=== PATIENT | female | born 1975 | race African-American/Black ===

== ENCOUNTER 2017-04-23 12:15 | Emergency (ER) | payer OTHER ==
[~2017-04-23] VITALS: Ht 152.4 cm; Wt 72.6 kg
[~2017-04-23 12:15] MED LIST: ALBUTEROL2.5 MG/3 M HHN; AUGMENTIN TAB875 MG PO; IBUPROFEN800 MG ORAL; METRONIDAZOLE500 MG ORAL; NORCO 5-325 TA1 EACH ORAL; PRENATAL VITAMINS; PROAIR HFA8.5 GM INH; TYLENOL500 MG PO
[2017-04-23] MEDS ORDERED: FLONASE ALLERG9.9 ML NS (12:41)
[2017-04-23] MEDS ORDERED: BROMFED DM COU118 ML PO (12:41)
[2017-04-23] MEDS ORDERED: ZYRTEC10 MG ORAL (12:41)
--- NOTE | 2017-04-23 12:41 | Emergency Room Report ---
History of Present Illness General Chief Complaint: Sore Throat Source: Patient Present Illness HPI 41 y/o female c/o URI sxs x 4 days. Assoc sxs include nasal congestion, rhinorrhea, sore throat, post nasal drip, bodyaches, chills, and cough due to tickle in the throat. States they have not taken any medication and there are no modifying factors. Denies any current n/v/f/c/d, abd pain, back pain, neck pain, photophobia, phonophobia, CP, SOB or headache. Allergies: Coded Allergies: No Known Allergies (Unverified , 05/05/12) Patient History Past Medical History: see triage record Past Surgical History: none Pertinent Family History: none Last Menstrual Period: 04/19/17 Now: No : 3 Para: 3 Immunizations: UTD Reviewed Nursing Documentation: PMH: Agreed, PSxH: Agreed Nursing Documentation-PMH Past Medical History: No History, Except For Hx Asthma: Yes - asthma Review of Systems All Other Systems: negative except mentioned in HPI Physical Exam Vital Signs Date Time Temp Pulse Resp B/P (MAP) Pulse Ox O2 Delivery O2 Flow Rate FiO2 04/23/17 12:20 98.1 88 20 118/71 99 Room Air Sp02 EP Interpretation: reviewed, normal General Appearance: no apparent distress, alert, GCS 15, non-toxic Head: normocephalic, atraumatic Eyes: bilateral eye normal inspection, bilateral eye PERRL ENT: hearing grossly normal, normal pharynx, no angioedema, normal voice, TMs + canals normal, uvula midline, nasal congestion Neck: full range of motion, no meningismus, supple/symm/no masses Respiratory: chest non-tender, lungs clear, normal breath sounds, speaking full sentences Cardiovascular #1: regular rate, rhythm, no edema Musculoskeletal: gait/station normal Neurologic: alert, oriented x3, responsive, motor strength/tone normal, sensory intact, speech normal Psychiatric: judgement/insight normal, memory normal, mood/affect normal, no suicidal/homicidal ideation Skin: normal color, no rash, warm/dry, well hydrated Lymphatic: no adenopathy Medical Decision Making PA Attestation Dr. Perez my supervising physician with whom patient management has been discussed with. Diagnostic Impression: Primary Impression: URI with cough and congestion ER Course Pt. presents to the ED c/o of cough and congestion Ddx considered but are not limited to bronchitis, pneumonia, viral upper respiratory tract infection Vital signs: are WNL, pt. is afebrile H&PE are most consistent with viral upper respiratory tract infection ORDERS: none required at this time, the diagnosis is clinical ED INTERVENTIONS: Prednisone 20mg. DISCHARGE: At this time pt. is stable for d/c to home. Will provide printed patient care instructions, and any necessary prescriptions. Care plan and follow up instructions have been discussed with the patient prior to discharge. Last Vital Signs Date Time Temp Pulse Resp B/P (MAP) Pulse Ox O2 Delivery O2 Flow Rate FiO2 04/23/17 12:20 98.1 88 20 118/71 99 Room Air Disposition: HOME, SELF-CARE Condition: Stable Scripts D-Methorphan Hb/P-Epd Hcl/Bpm (BROMFED DM COUGH SYRUP) 118 Ml Syrup 5 ML PO QHS for 7 Days, #120 ML Prov: CHRISTAMEEM P.A. 04/23/17 Cetirizine Hcl* (ZYRTEC*) 10 Mg Tablet 10 MG ORAL DAILY, #14 TAB 0 Refills Prov: SABRY,TAMEEM P.A. 04/23/17 Fluticasone Propionate (Flonase Allergy Relief) 9.9 Ml [place].susp 2 SPRAYS NS DAILY for 7 Days, #10 ML Prov: SABRY,TAMEEM P.A. 04/23/17 Patient Instructions: Sore Throat YOSELIN PEREZ P.A. Apr 23, 2017 12:41
[2017-04-23 12:55] VITALS: BP 128/76
== END 2017-04-23 13:00 | disposition home or self-care (01) ==
LOC: EMR 13:00
DX: J06.9 Acute upper respiratory infection, unspecified (principal); J45.909 Unspecified asthma, uncomplicated
CPT/HCPCS: 99284

== ENCOUNTER → 2017-07-04 | Emergency (ER) | payer MEDICAID, OTHER ==
[~2017-07-04] VITALS: Ht 152.4 cm; Wt 67.1 kg
[~2017-07-04] MED LIST changes: +BROMFED DM COU118 ML PO; +FLONASE ALLERG9.9 ML NS; +ZYRTEC10 MG ORAL
[2017-07-04 19:04] VITALS: BP 128/84
--- NOTE | 2017-07-05 20:18 | Emergency Room Report ---
History of Present Illness General Chief Complaint: Abdominal Pain Source: Patient, Medical Record Present Illness HPI Patient left without being seen. Allergies: Coded Allergies: No Known Allergies (Unverified , 05/05/12) Patient History Last Menstrual Period: 06/22/17 Nursing Documentation-[facility] Past Medical History: No History, Except For Hx Asthma: Yes - asthma Physical Exam Vital Signs Date Time Temp Pulse Resp B/P (MAP) Pulse Ox O2 Delivery O2 Flow Rate FiO2 07/04/17 19:04 97.9 91 18 128/84 97 Room Air Medical Decision Making PA Attestation Dr. Perez is my supervising Physician whom patient management has been discussed with. Diagnostic Impression: Primary Impression: Patient left without being seen ER Course Patient left without being seen. Last Vital Signs Date Time Temp Pulse Resp B/P (MAP) Pulse Ox O2 Delivery O2 Flow Rate FiO2 07/04/17 19:04 97.9 91 18 128/84 97 Room Air Disposition: ELOPED Referrals: [facility],REFERRING (PCP) Additional Instructions: Patient left without being seen. Delvis Post Jul 05, 2017 20:18
== END | disposition left against medical advice (07) ==
LOC: EMR 19:24
DX: R10.9 Unspecified abdominal pain (principal); Z53.21 Procedure and treatment not carried out due to patient leaving prior to being seen by health care provider
CPT/HCPCS: 99281

== ENCOUNTER 2017-12-06 06:59 | Emergency (ER) | payer MEDICAID ==
[~2017-12-06] VITALS: Ht 152.4 cm; Wt 63.5 kg
[2017-12-06 07:16] VITALS: BP 120/77
[2017-12-06] MEDS ORDERED: Morgan Lens TOPIC ONE (07:30)
[2017-12-06] MEDS ORDERED: Sodium Chloride 500ML 500 ML IV ONE (07:30)
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
[2017-12-06] MEDS ORDERED: Tetanus/Diptheria/Pertussis Vaccine 0.5ml Syr IM ONE (08:15)
[2017-12-06] MEDS ORDERED: OCUFLOX5 ML BOTH EYES (08:31)
[2017-12-06 08:48] VITALS: BP 120/77
== END 2017-12-06 08:45 | disposition home or self-care (01) ==
LOC: EMR 07:25
DX: T65.891A Toxic effect of other specified substances, accidental (unintentional), initial encounter (principal); H57.13 Ocular pain, bilateral; Y92.9 Unspecified place or not applicable; Z23 Encounter for immunization; J45.909 Unspecified asthma, uncomplicated
CPT/HCPCS: 90471; 90715; 99283; J7040

== ENCOUNTER 2018-05-08 11:35 | Emergency (ER) | payer MEDICAID, OTHER ==
[~2018-05-08] VITALS: Ht 152.4 cm; Wt 63.5 kg
[~2018-05-08 11:35] MED LIST changes: +OCUFLOX5 ML BOTH EYES
[2018-05-08] MEDS ORDERED: Ketorolac 30mg Inj IM ONE (12:30)
[2018-05-08 12:47] LABS: APPEARANCE,URINE CLEAR; BILIRUBIN, URINE NEGATIVE (NEGATIVE); COLOR,URINE PALE YELLOW; GLUCOSE, URINE (UA) NEGATIVE (NEGATIVE); KETONES,URINE NEGATIVE (NEGATIVE); LEUKOCYTE ESTERASE ,URINE NEGATIVE (NEGATIVE); NITRITE,URINE NEGATIVE (NEGATIVE); PH,URINE 8 (4.5-8.0); PROTEIN,URINE NEGATIVE (NEGATIVE); UROBILINOGEN,URINE NORMAL MG/DL (0.0-1.0)
--- NOTE | 2018-05-08 12:56 | Emergency Room Report ---
History of Present Illness General Chief Complaint: Gastrointestinal Bleed Source: Patient, Medical Record Present Illness HPI 42-year-old female patient presents the ER complaining of headache and vomiting blood. Patient reports that the headache is been present for 2 days. States the headache is on the left side of her head. Denies fever or neck pain. Denies vision changes, photophobia, phonophobia. Patient reports that she became nauseous and began vomiting while at court earlier today. Patient reports that first she vomited 4 times, the fourth episode she noticed some blood in the vomit. Denies coffee ground emesis. Denies eating food prior to vomiting. States that she has been able to drink fluids since that time without vomiting. Reports history of migraines in the past that normally occurs with vomiting, states that she normally takes Excedrin for relief of symptoms. Denies history of drinking or drug use. Denies fever, chest pain, shortness of breath, abdominal pain, diarrhea. Denies contacts with similar symptoms. Denies injury or trauma. Allergies: Coded Allergies: No Known Allergies (Unverified , 05/05/12) Patient History Past Medical History: see triage record Last Menstrual Period: 04/26/18 Reviewed Nursing Documentation: PMH: Agreed; PSxH: Agreed Nursing Documentation-PMH Past Medical History: No History, Except For Hx Asthma: Yes Review of Systems All Other Systems: negative except mentioned in HPI Physical Exam Vital Signs Date Time Temp Pulse Resp B/P (MAP) Pulse Ox O2 Delivery O2 Flow Rate FiO2 05/08/18 11:43 97.9 85 18 128/83 98 Room Air Sp02 EP Interpretation: reviewed, normal General Appearance: well appearing, no apparent distress, alert, GCS 15, non- toxic Head: normocephalic, atraumatic Eyes: bilateral eye normal inspection, bilateral eye PERRL ENT: hearing grossly normal, normal pharynx, no angioedema, normal voice, uvula midline, moist mucus membranes Neck: full range of motion, no meningismus, no bony tend Respiratory: lungs clear, normal breath sounds, no rhonchi, no respiratory distress, no accessory muscle use, no wheezing, speaking full sentences Cardiovascular #1: regular rate, rhythm, no edema Gastrointestinal: non tender, soft, no mass, non-distended, no guarding, no rebound Genitourinary: no CVA tenderness Musculoskeletal: back normal, digits/nails normal, gait/station normal, normal range of motion, non-tender Neurologic: alert, oriented x3, responsive, tearoom host/hostess III-XII nml as tested, motor strength/tone normal, sensory intact, cerebellar normal, normal gait, speech normal Psychiatric: mood/affect normal Skin: no rash Medical Decision Making PA Attestation Dr. Esposito is my supervising Physician whom patient management has been discussed with. Diagnostic Impression: Primary Impression: Migraine Additional Impression: Kaylan-Zavala tear ER Course Pt presents to ED c/o headache and vomiting. DDX considered but are not limited to migraine, cluster VALDEZ, tension VALDEZ, meningitis, ICH, meningitis, sinusitis, UTI, esophageal varices, Kaylan-Zavala tear, Denies neck pain, no meningeal signs of irritation, afebrile, low suspicion for meningitis. VITAL SIGNS are WNL, patient is afebrile ER COURSE Provide patient with Reglan, Benadryl, Toradol, Zofran while in the ER. UA shows no signs of infection, does not require treatment for UTI. CT head negative for acute disease. No signs of anemia, no circumoral pallor, no blood noted in oropharynx, cap refill less than 2 seconds, does not require labs at this time, single episode of vomiting with blood likely due to likely Kaylan-Zavala tear secondary to vomiting. Patient able tolerate p.o. fluids at this time. Patient reports pain improved. Patient is AOx3, neurologically intact, nontoxic appearing, and ambulatory. Follow-up with neurology. Follow-up with GI specialist. ER precautions given. DISCHARGE: At this time pt is stable for d/c to home. Patient is resting comfortably, in no acute distress, nontoxic appearing, talking and smiling. Will provide with patient care instructions and any necessary prescriptions. Patient to take medication as instructed. Care plan and follow-up instructions provided. Patient questions asked and answered. Patient instructed to follow-up with primary care provider in the next 3 days and discuss further referral with PCP to neurologist. ER precautions given. Patient instructed to return to ER immediately for any new or worsening of symptoms including but not limited to fever, neck stiffness , vision changes, and neurological symptoms. - Please note that this Emergency Department Report was dictated using [employer] or skin buffer technology software, occasionally this can lead to erroneous entry secondary to interpretation by the dictation equipment. Labs Test 05/08/18 12:30 Urine Color Pale yellow Urine Appearance Clear Urine pH 8 (4.5-8.0) Urine Specific [place] 1.005 (1.005-1.035) Urine Protein Negative (NEGATIVE) Urine Glucose (UA) Negative (NEGATIVE) Urine Ketones Negative (NEGATIVE) Urine Blood Negative (NEGATIVE) Urine Nitrite Negative (NEGATIVE) Urine Bilirubin Negative (NEGATIVE) Urine Urobilinogen Normal MG/DL (0.0-1.0) Urine Leukocyte Esterase Negative (NEGATIVE) Urine HCG, Qualitative Negative (NEGATIVE) CT/MRI/US Diagnostic Results CT/MRI/US Diagnostic Results : Imaging Test Ordered: CT head Impression Normal Last Vital Signs Date Time Temp Pulse Resp B/P (MAP) Pulse Ox O2 Delivery O2 Flow Rate FiO2 05/08/18 11:43 97.9 85 18 128/83 98 Room Air Status: improved Disposition: HOME, SELF-CARE Condition: Stable Scripts Ondansetron* (ZOFRAN*) 4 Mg Tablet 4 MG ORAL Q6H PRN for Nausea & Vomiting, #8 TAB Prov: Delvis Post 05/08/18 Aspirin/Acetaminophen/Caffeine (EXCEDRIN MIGRAINE CAPLET) 1 Each Tablet 1 EACH PO TID, #30 TAB Prov: Delvis Post 05/08/18 Patient Instructions: Kaylan-Zavala Syndrome, Migraine Headache, Dcel-no-Gvtt Additional Instructions: Followup with primary care provider in 2-3 days. Discussed referral to neurology for headache evaluation. Discussed referral to GI specialist and need for endoscopy due to likely Kaylan -Zavala tear. Take medications as directed. Patient questions asked and answered. ER precautions given, patient instructed to return to ER immediately for any new or worsening of symptoms. Delvis Post May 08, 2018 12:56
[2018-05-08 13:40] VITALS: BP 136/81
[2018-05-08] MEDS ORDERED: EXCEDRIN MIGRA1 EAC1 PO (15:11)
[2018-05-08] MEDS ORDERED: ZOFRAN4 M3 ORAL (15:11)
[2018-05-08 15:40] VITALS: BP 116/74
--- NOTE | 2018-05-08 16:55 | Diagnostic Imaging Report ---
Indication: Headache Technique: Contiguous 5 mm thick transaxial imaging of the head obtained in a Siemens Sensation [address] scanner. Soft tissue and bone windows generated. Automatic Exposure Control was utilized. Total Dose length Product (DLP): 1291.[address] Dose Index Volume (CTDIvol): 70.38 mGy Comparison: 09/20/2014 Findings: The size and configuration of the cortical sulci, basal cisterns, and ventricles are within normal limits for age. There is no mass effect, midline shift, or edema identified. There is no evidence of acute hemorrhage or abnormal intra-axial or extra-axial fluid collections. The bones and soft tissues are unremarkable. Impression: No mass effect, edema or acute bleed. The CT scanner at [facility] is accredited by the [employer] and the scans are performed using dose optimization techniques as appropriate to a performed exam including Automatic Exposure control.
== END 2018-05-08 15:41 | disposition home or self-care (01) ==
LOC: EMR 13:01
DX: G43.909 Migraine, unspecified, not intractable, without status migrainosus (principal); K22.6 Gastro-esophageal laceration-hemorrhage syndrome; J45.909 Unspecified asthma, uncomplicated
CPT/HCPCS: 70450; 81003; 81025; 96372; 99284; J1885

== ENCOUNTER 2019-09-03 16:48 | Emergency (ER) | payer MEDICAID ==
[~2019-09-03] VITALS: Ht 172.7 cm; Wt 63.5 kg
[~2019-09-03 16:48] MED LIST changes: +EXCEDRIN MIGRA1 EAC1 PO; +VENTOLIN HFA18 GM INH; +ZOFRAN4 M3 ORAL
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
[2019-09-03] MEDS ORDERED: Methocarbamol 750mg tab ORAL ONE (18:30)
--- NOTE | 2019-09-03 18:46 | Diagnostic Imaging Report ---
EXAM: XR Left Ankle Complete, 3 or More Views CLINICAL HISTORY: TRAUMA TECHNIQUE: Frontal, lateral and oblique views of the left ankle. COMPARISON: Left ankle radiographs on 05/05/2012 FINDINGS: Bones/joints: No displaced fracture or dislocation identified. Ankle mortise is intact. Soft tissues: Prominent soft tissue swelling. IMPRESSION: 1. No displaced fracture or dislocation identified. 2. Prominent soft tissue swelling.
--- NOTE | 2019-09-03 18:57 | Emergency Room Report ---
History of Present Illness General Chief Complaint: Lower Extremity Injury Source: Patient Present Illness HPI 44-year-old female with no symptom past medical history here complaining of left ankle swelling and pain after twisting it 2 days ago. Patient coming down with an ankle bruise that reports that was for her other ankle injury however does not shift this ankle. Rates the pain 10 out of 10 without radiation. Ecchymosis and swelling noted however x-ray shows no fracture. Patient is requesting either Tylenol 3 or Orange. Denies all other symptoms, calf tenderness, chest pain shortness of breath. Denies head injury. Denies at this time. Allergies: Coded Allergies: No Known Allergies (Unverified , 05/05/12) COVID-19 Screening Contact w/high risk pt: No Recent Travel to affected area: No Experienced COVID-19 symptoms?: No Patient History Past Medical History: see triage record Past Surgical History: none Pertinent Family History: none Last Menstrual Period: now Now: No Immunizations: UTD Reviewed Nursing Documentation: PMH: Agreed; PSxH: Agreed Nursing Documentation-PMH Hx Asthma: Yes Review of Systems All Other Systems: negative except mentioned in HPI Physical Exam Vital Signs Date Time Temp Pulse Resp B/P (MAP) Pulse Ox O2 Delivery O2 Flow Rate FiO2 09/03/19 17:52 98.1 95 18 102/73 (83) 98 Room Air Sp02 EP Interpretation: reviewed, normal General Appearance: no apparent distress, alert, GCS 15, non-toxic Head: normocephalic, atraumatic Eyes: bilateral eye normal inspection, bilateral eye PERRL ENT: normal ENT inspection Neck: full range of motion, supple/symm/no masses Respiratory: chest non-tender, lungs clear, normal breath sounds, no rhonchi, no retraction, no wheezing, speaking full sentences Cardiovascular #1: regular rate, rhythm, no edema, no murmur Gastrointestinal: non tender, soft Rectal: deferred Genitourinary: no CVA tenderness Musculoskeletal: back normal, no calf tenderness, swelling - lefy medial lateral malleolus Neurologic: alert, motor strength/tone normal, oriented x3, sensory intact, responsive, speech normal Psychiatric: judgement/insight normal, memory normal, mood/affect normal, no suicidal/homicidal ideation Skin: no rash Lymphatic: no adenopathy Procedures Splinting Splinting : Consent: Verbal Location: left ankle Hand-Made Type: plaster Splint: poserior short Pre-Proc Neuro Vasc Exam: normal Post-Proc Neuro Vasc Exam: normal Patient Tolerated: Well Complications: None Progress Crutches were provided Medical Decision Making PA Attestation All diagnoses and treatment plans were reviewed and discussed with my supervising physician Dr. Carpenter Diagnostic Impression: Primary Impression: Ankle sprain ER Course 44-year-old female with no symptom past medical history here complaining of left ankle swelling and pain after twisting it 2 days ago. Patient coming down with an ankle bruise that reports that was for her other ankle injury however does not shift this ankle. Rates the pain 10 out of 10 without radiation. Ecchymosis and swelling noted however x-ray shows no fracture. Patient is requesting either Tylenol 3 or Orange. Denies all other symptoms, calf tenderness, chest pain shortness of breath. Denies head injury. Denies at this time. Ddx considered but are not limited to: ankle sprain, ankle strain, ankle fracture, ankle contusion Vital signs: are WNL, pt. is afebrile H&PE are most consistent with: left ankle sprain ORDERS: ankle x-ray, Robaxin, Tylenol, patient refuses to get ibuprofen as it does not help her. ED INTERVENTIONS: Symptomatic splinting was done patient to follow-up with primary doctor. As well as dentofacial orthopedics dentist. Crutches were provided DISCHARGE: At this time pt. is stable for d/c to home. Will provide printed patient care instructions, and any necessary prescriptions. Care plan and follow up instructions have been discussed with the patient prior to discharge. Other X-Ray Diagnostic Results Other X-Ray Diagnostic Results : X-Ray ordered: left ankle # of Views/Limited Vs Complete: 3 View Indication: Swelling EP Interpretation: Yes PA Xray: Interpretation reviewed, by supervising MD, and agrees with findings. Interpretation: no dislocation, no fractures, other - No fracture noted Impression: No acute disease Electronically Signed by: Lori Urena PA-C Last Vital Signs Date Time Temp Pulse Resp B/P (MAP) Pulse Ox O2 Delivery O2 Flow Rate FiO2 09/03/19 17:52 98.1 95 18 102/73 (83) 98 Room Air Disposition: HOME, SELF-CARE Condition: Stable Scripts Methocarbamol* (ROBAXIN-500*) 500 Mg Tablet 500 MG ORAL TID PRN for For Pain, #15 TAB 0 Refills Prov: Lori Robertson 09/03/19 Acetaminophen* (TYLENOL EXTRA STRENGTH*) 500 Mg Tablet 500 MG ORAL Q6H PRN for Mild Pain/Temp > 100.5, #30 TAB 0 Refills Prov: Lori Robertson 09/03/19 Referrals: NON PHYSICIAN (PCP) Patient Instructions: Ankle Sprain Additional Instructions: Take medication as directed, follow with dentofacial orthopedics dentist, at this time he cannot give any narcotics, you do not have a fracture, you need to follow-up with pain management your regular doctor for narcotics. Symptomatic splint was given to you however if swelling noted or numbness take the splint off. Return to the emergency room worsening symptoms. Lori Robertson Sep 03, 2019 18:57
[2019-09-03] MEDS ORDERED: TYLENOL EXTRA500 MG ORAL (18:58)
[2019-09-03] MEDS ORDERED: ROBAXIN-500MG ORAL (18:58)
--- NOTE | 2019-09-03 19:17 | NUR ---
HAND-OFF: Report given to MAYCOL Zepeda. Endorse POC.
--- NOTE | 2019-09-03 19:18 | NUR ---
HAND-OFF: Report given to MAYCOL Zepeda. Endorse POC.
[2019-09-03 19:25] VITALS: BP 119/68
--- NOTE | 2019-09-03 19:25 | NUR ---
ER DISCHARGE NOTE: Patient is cleared to be discharged per ERMD, pt is aox4, on room air, with stable vital signs. pt was given dc and prescription instructions, pt was able to verbalize understanding, pt id band and iv site removed without complications. pt is able to ambulate with steady gait. pt took all belongings.pt given crutches with crutch training and return demonstrates proper use, pt also d/c with splint cast to loweer extremity.
[2019-09-03 19:45] VITALS: BP 119/68
== END 2019-09-03 19:45 | disposition home or self-care (01) ==
LOC: EMR 17:00
DX: S93.402A Sprain of unspecified ligament of left ankle, initial encounter (principal); X58.XXXA Exposure to other specified factors, initial encounter; Y92.9 Unspecified place or not applicable
CPT/HCPCS: 29515; 73610; Z7502; 99283

== ENCOUNTER 2019-12-17 18:34 | Emergency (ER) | payer MEDICAID ==
[~2019-12-17] VITALS: Ht 152.4 cm; Wt 68.0 kg
[~2019-12-17 18:34] MED LIST changes: +ROBAXIN-500MG ORAL; +TYLENOL EXTRA500 MG ORAL
[2019-12-17 18:41] VITALS: BP 110/68
--- NOTE | 2019-12-17 18:41 | NUR ---
ED Nurse Note: Patient walked in to ED from home c/o non radiating chest pain onset 1 week ago. Denies SOB. Breathing even and unlabored, on room air. Afebrile. Pt AAOx4, verbally responsive. Pt placed on threat monitoring analyst. ERPA at bedside.
--- NOTE | 2019-12-17 18:45 | NUR ---
ED Nurse Note: IV line established. Blood and urine specimen collected and sent to lab.
--- NOTE | 2019-12-17 18:57 | NUR ---
ED Nurse Note: Xray at bedside.
[2019-12-17] MEDS ORDERED: Ketorolac 30mg Inj IV ONE (19:00)
--- NOTE | 2019-12-17 19:09 | NUR ---
HAND-OFF: Report given to Mario SEVERINO.
[2019-12-17 19:10] VITALS: BP 126/63
--- NOTE | 2019-12-17 19:10 | NUR ---
ED Nurse Note: received report from Milton SEVERINO. Pt vss, nad, aaox4.
[2019-12-17 19:12] LABS: BASOPHILS % (AUTO) 0.9 % (0.0-2.0); EOSINOPHILS % (AUTO) 1.4 % (0.0-3.0); HEMATOCRIT 32.5 % (37.0-47.0); LYMPHOCYTES % (AUTO) 23.5 % (20.0-45.0); MEAN CORPUSCULAR VOLUME 69 FL (80-99); MONOCYTES % (AUTO) 6.1 % (1.0-10.0); NEUTROPHILS % (AUTO) 68.1 % (45.0-75.0); PLATELET COUNT 626 K/UL (150-450); RED BLOOD COUNT 4.71 M/UL (4.20-5.40); RED CELL DISTRIBUTION WIDTH 17.7 % (11.6-14.8); WHITE BLOOD COUNT 10.3 K/UL (4.8-10.8)
--- NOTE | 2019-12-17 19:14 | Emergency Room Report ---
History of Present Illness General Chief Complaint: Chest Pain Source: Patient Present Illness HPI 44-year-old female with no history of cardiac disease and no other past medical history here complaining of intermittent chest pain for the past several weeks. Patient reports that she went to a different hospital a week ago and felt better after pain medication was given. Reports that the pain is worse when moving around tossing and turning especially during sleep. Denies any shortness of breath, headache and dizziness. Denies any chest pain radiation. Denies fever and chills, nausea vomiting diarrhea. Denies tobacco smoke however reports that she sometimes smokes marijuana. Denies any alcohol intake. Denies . Denies any abnormal bleeding. Reports her last menstrual period was 3 days ago. Has not taken medication for symptom relief. Allergies: Coded Allergies: No Known Allergies (Unverified , 05/05/12) COVID-19 Screening Contact w/high risk pt: No Recent Travel to affected area: No Experienced COVID-19 symptoms?: No COVID-19 Testing performed GU[employer]G [employer]CTOR: No COVID-19 Screening: Negative COVID-19 COVID-19 Testing Source: [employer]. 12/10/19 Patient History Past Medical History: see triage record Past Surgical History: none Pertinent Family History: none Last Menstrual Period: 12/14/19 Now: No Immunizations: UTD Reviewed Nursing Documentation: PMH: Agreed; PSxH: Agreed Nursing Documentation-PMH Past Medical History: No History, Except For Hx Asthma: Yes Review of Systems All Other Systems: negative except mentioned in HPI Physical Exam Vital Signs Date Time Temp Pulse Resp B/P (MAP) Pulse Ox O2 Delivery O2 Flow Rate FiO2 12/17/19 18:37 98.2 84 18 110/68 (82) 99 Room Air Sp02 EP Interpretation: reviewed, normal General Appearance: no apparent distress, alert, GCS 15, non-toxic Head: normocephalic, atraumatic Eyes: bilateral eye normal inspection, bilateral eye PERRL ENT: hearing grossly normal, normal pharynx, no angioedema, normal voice Neck: full range of motion, supple/symm/no masses Respiratory: chest non-tender, lungs clear, normal breath sounds, no rhonchi, no respiratory distress, no retraction, no wheezing, speaking full sentences Cardiovascular #1: regular rate, rhythm, no edema, no murmur Gastrointestinal: normal bowel sounds, non tender, soft, non-distended, no guarding, no rebound Genitourinary: normal inspection, no CVA tenderness Musculoskeletal: back normal, no calf tenderness Neurologic: alert, motor strength/tone normal, oriented x3, sensory intact, responsive, speech normal Psychiatric: judgement/insight normal, memory normal, mood/affect normal, no suicidal/homicidal ideation Skin: no rash Lymphatic: no adenopathy Medical Decision Making PA Attestation All diagnosis and treatment plans were discussed and reviewed by my supervising physician Dr. Aguilar Diagnostic Impression: Primary Impression: Chest pain Additional Impression: Anemia ER Course 44-year-old female with no history of cardiac disease and no other past medical history here complaining of intermittent chest pain for the past several weeks. Patient reports that she went to a different hospital a week ago and felt better after pain medication was given. Reports that the pain is worse when moving around tossing and turning especially during sleep. Denies any shortness of breath, headache and dizziness. Denies any chest pain radiation. Denies fever and chills, nausea vomiting diarrhea. Denies tobacco smoke however reports that she sometimes smokes marijuana. Denies any alcohol intake. Denies . Denies any abnormal bleeding. Reports her last menstrual period was 3 days ago. Has not taken medication for symptom relief. Ddx considered but are not limited to: [place], Angina, COPD, GERD, Vital signs: are WNL, pt. is afebrile H&PE are most consistent with unspecified chest pain, anemia ORDERS: EKG, Chest XR, cardiac labs, tox screen,, Robaxin, Motrin as patient request something for pain seems like it is mostly muscle related as it changes in nature with tossing and turning and movement, ferrous sulfate ED INTERVENTIONS: Toradol, NS bolus DISCHARGE: At this time pt. is stable for d/c to home. Will provide printed patient care instructions, and any necessary prescriptions. Care plan and follow up instructions have been discussed with the patient prior to discharge. Patient take medication as directed, follow-up primary care provider, referral to sole buffer may be needed, avoid strenuous physical activity, also address anemia to primary doctor, if worsening symptoms return to the emergency room EKG Diagnostic Results Rate: normal Rhythm: NSR ST Segments: no acute changes Other Impression No acute ST changes Chest X-Ray Diagnostic Results Chest X-Ray Diagnostic Results : Chest X-Ray Ordered: Yes # of Views/Limited/Complete: 1 View Indication: Chest Pain EP Interpretation: Yes PA Xray: Interpretation reviewed, by supervising MD, and agrees with findings. Interpretation: no consolidation, no effusion, no pneumothorax Impression: No acute disease Electronically Signed by: Lori Urena PA-C Last Vital Signs Date Time Temp Pulse Resp B/P (MAP) Pulse Ox O2 Delivery O2 Flow Rate FiO2 12/17/19 18:41 84 18 Room Air 12/17/19 18:41 98.2 110/68 99 Disposition: HOME, SELF-CARE Condition: Stable Scripts Ferrous Sulfate* (FERROUS SULFATE*) 325 Mg Tablet 325 MG ORAL TWICE A DAY, #60 TAB 0 Refills Prov: Lori Robertson 12/17/19 Ibuprofen* (MOTRIN*) 600 Mg Tablet 600 MG ORAL Q8H PRN for FOR PAIN, #30 TAB 0 Refills Prov: Lori Robertson 12/17/19 Methocarbamol* (ROBAXIN-500*) 500 Mg Tablet 500 MG ORAL TID PRN for For Pain, #15 TAB 0 Refills Prov: Lori Robertson 12/17/19 [facility],REFERRING (PCP) Patient Instructions: Iron Deficiency Anemia, Adult, Nonspecific Chest Pain Additional Instructions: Take medication as directed, follow-up with your primary care provider, you may need to be sent to a sole buffer, avoid strenuous physical activity, if worsening symptoms return to the emergency room. Lori Robertson Dec 17, 2019 19:14
[2019-12-17 19:18] LABS: APPEARANCE,URINE CLEAR; BILIRUBIN, URINE NEGATIVE (NEGATIVE); GLUCOSE, URINE (UA) NEGATIVE (NEGATIVE); KETONES,URINE NEGATIVE (NEGATIVE); LEUKOCYTE ESTERASE ,URINE NEGATIVE (NEGATIVE); NITRITE,URINE NEGATIVE (NEGATIVE); PH,URINE 6 (4.5-8.0); PROTEIN,URINE NEGATIVE (NEGATIVE); UROBILINOGEN,URINE 1 MG/DL (0.0-1.0)
[2019-12-17 19:22] LABS: COLOR,URINE YELLOW
[2019-12-17 19:24] LABS: ANION GAP 7 mmol/L (5-15); BLOOD UREA NITROGEN 12 mg/dL (7-18); CALCIUM 9.2 MG/DL (8.5-10.1); CARBON DIOXIDE 28 MMOL/L (21-32); CHLORIDE 104 MMOL/L (98-107); CREATININE 0.7 MG/DL (0.55-1.30); POTASSIUM 3.8 MMOL/L (3.5-5.1); SODIUM 139 MMOL/L (136-145)
[2019-12-17 19:35] LABS: ALANINE AMINOTRANSFERASE 23 U/L (12-78); ALBUMIN 3.8 G/DL (3.4-5.0); ALKALINE PHOSPHATASE 119 U/L (46-116); ASPARTATE AMINO TRANSFERASE 19 U/L (15-37); BILIRUBIN,TOTAL 0.3 MG/DL (0.2-1.0)
--- NOTE | 2019-12-17 19:54 | Diagnostic Imaging Report ---
EXAM: XR Chest, 1 View CLINICAL HISTORY: PAIN TECHNIQUE: Frontal view of the chest. COMPARISON: No relevant prior studies available. FINDINGS: Lungs: Low lung volumes with bronchovascular crowding. No consolidation, pleural effusion, or pneumothorax. Pleural space: See above. Heart: Unremarkable. No cardiomegaly. Mediastinum: Unremarkable. Bones/joints: No acute abnormality IMPRESSION: 1. Low lung volumes with bronchovascular crowding. 2. Otherwise no acute cardiopulmonary disease. 3. If there is continued concern, recommend frontal and lateral chest radiographs or CT.
[2019-12-17] MEDS ORDERED: IBUPROFEN600 M1 ORAL (19:58)
[2019-12-17] MEDS ORDERED: ROBAXIN-500MG ORAL (19:58)
[2019-12-17] MEDS ORDERED: FERROUS SULFAT325 MG ORAL (19:58)
[2019-12-17 20:00] VITALS: BP 119/73
--- NOTE | 2019-12-17 20:00 | NUR ---
ER DISCHARGE NOTE: Patient is cleared to be discharged per ERMD, pt is aox4, on room air, with stable vital signs. pt was given dc and prescription instructions, pt was able to verbalize understanding, pt id band and iv site removed without complications. pt is able to ambulate with steady gait. pt took all belongings.
== END 2019-12-17 20:00 | disposition home or self-care (01) ==
LOC: EMR 19:02
DX: R07.9 Chest pain, unspecified (principal); D64.9 Anemia, unspecified
CPT/HCPCS: 36415; 71045; 80053; 80307; 81003; 83880; 84484; 85025; 93005; 96361; 96374; J1885; J7030; Z7502; 99284